=== PATIENT | male | born 1970 | race Caucasian/White ===

== ENCOUNTER 2016-11-09 16:01 | Emergency (ER) | payer MEDICAID ==
[~2016-11-09] VITALS: Wt 81.0 kg
[~2016-11-09 16:01] MED LIST: NAPR-260 PO; ULT50 PO
[2016-11-09] MEDS ORDERED: FLUORESCEIN STRIP BOTH EYES ONE (16:30)
[2016-11-09] MEDS ORDERED: TETRACAINE 0.5% 15 ML OPH BOTH EYES ONE (16:30)
[2016-11-09] MEDS ORDERED: OFLO5DRO7 BOTH EARS (16:48)
--- NOTE | 2016-11-09 17:07 | ERD ---
ER Documentation Chief Complaint Date/Time DATE: 11/09/16 TIME: 17:03 Chief Complaint bilateral eye redness and drainage. HPI Patient is a 46-year-old male who presents to the ED with bilateral eye redness and drainage. He states that he uses contacts and usually keeps him in for 1 week as they are overnight and long-term contacts. However he states that he had them in his eye for 1 day extra. He states that he removed the contact in his right eye but not his left. He states that he cannot remove the contact in his left eye as he does not have glasses and will not be able to see. He denies fever or chills. Denies blurry vision, dizziness or headaches. He denies abdominal pain, nausea, vomiting or diarrhea. He denies a sensation of a foreign body in his eyes. Denies pain or itchiness. ROS All systems reviewed and are negative except as per history of present illness. Medications Home Meds Active Scripts Naproxen* (Naprosyn*) 500 Mg Tablet, 500 MG PO BID Y for PAIN AND/OR INFLAMMATION, #30 TAB Prov:JOSE GALLOWAY PA-C 08/10/16 Tramadol HCl (Tramadol HCl) 50 Mg Tablet, 50 MG PO Q4 Y for PAIN, #20 TAB Prov:JOSE GALLOWAY PA-C 08/10/16 Allergies Allergies: Coded Allergies: No Known Allergy (Unverified , 11/09/16) PMhx/Soc Medical and Surgical Hx: pt denies Medical Hx, pt denies Surgical Hx History of Surgery: No Anesthesia Reaction: No Hx Neurological Disorder: No Hx Respiratory Disorders: No Hx Cardiac Disorders: No Hx Psychiatric Problems: No Hx Miscellaneous Medical Probl: No Hx Alcohol Use: No Hx Substance Use: No Hx Tobacco Use: No Smoking Status: Never smoker Physical Exam Vitals Vital Signs Date Time Temp Pulse Resp B/P Pulse Ox O2 Delivery O2 Flow Rate FiO2 11/09/16 16:04 98.5 100 20 139/85 98 Physical Exam GENERAL: Well-developed, well-nourished male. Appears in no acute distress. HEAD: Normocephalic, atraumatic. EYES: Pupils are equally reactive bilaterally. EOMs grossly intact. bilateral conjunctival erythema. no foreign bodies seen. contact is in left eye. ENT: Moist mucous membranes. No uvula deviation. No kissing tonsils. No exudates. NECK: Supple. No lymphadenopathy or thyromegaly. No meningismus. negative kernig. negative brudinski. LUNG: Clear to auscultation bilaterally. No rhonchi, wheezing, rales or coarse breath sounds. HEART: Regular rate and rhythm. No murmurs, rubs or gallops. ABDOMEN: No scars, ecchymosis or rashes noted. Soft, nontender, and nondistended. Positive bowel sounds in all four quadrants. No rebound tenderness , no guarding. (-) McBurneys point tenderness. No CVA tenderness. BACK: No midline tenderness. Extremities: Equal pulses bilaterally. No peripheral clubbing, cyanosis or edema. No unilateral leg swelling. NEUROLOGIC: Alert and oriented. Moving all four extremities. 5/5 strength in all extremities. Normal speech. Steady gait. SKIN: Normal color. Warm and dry. No rashes or lesions. Capillary refill < 2 seconds Results 24 hrs Current Medications Medications (Trade) Dose Ordered Sig/Aditya Route PRN Reason Start Time Stop Time Status Last Admin Dose Admin Tetracaine HCl (Tetracaine 0.5% Oph) 1 drop ONCE ONCE BOTH EYES 11/09/16 16:30 11/09/16 17:32 DC Fluorescein Sodium (Poane-K-Gklti) 1 strip ONCE ONCE BOTH EYES 11/09/16 16:30 11/09/16 17:32 DC Procedures/MDM ER COURSE: I kept the patient and/or family informed of laboratory and diagnostic imaging results throughout the emergency room course. PROCEDURES: Fluorescein, tetracaine. UV light. MEDICAL DECISION MAKING: This is a 46-year-old male who presents with bilateral eye redness. Vital signs were reviewed. Patient is afebrile. Patient is not hypoxic. Patient likely has irritation from contact use. His eye examination was normal. I did not see any Isamar sign, foreign body, abrasion or ulcers. No dendritic lesions seen. Patient refused examination of his left eye as he did not want to take his contact and did not want any tetracaine or fluorescein stain in that eye. Low suspicion for acute angle closure glaucoma, retinal detachment, arterial occlusion, hemorrhage, fracture, foreign body, ruptured globe, orbital cellulitis. DISCHARGE: At this time, patient is stable for discharge and outpatient management with no new complaints during the ER course. Patient was sent home with ofloxacin drops patient to follow-up with ophthalmology. Advised patient to wear glasses and not contacts for 2-3 weeks.. Patient will be discharged home with instructions to recheck for new or worsening symptoms such as fever, nausea, weakness, LOC and to follow up with primary care in the next 1-2 days. Patient was advised to return to the ER for any new or worsening symptoms. Plan was discussed and patient and/or family understands and agrees. Home instructions were given. Departure Diagnosis: Primary Impression: Eye problem Condition: Stable Patient Instructions: Corneal Injury, Contact Lens Additional Instructions: Call your primary care doctor TOMORROW for an appointment during the next 1-2 days.See the doctor sooner or return here if your condition worsens before your appointment time. CLAUS ORTIZ PA-C Nov 09, 2016 17:07 CLAUS ORTIZ PA-C Nov 09, 2016 17:07
== END 2016-11-09 17:16 | disposition home or self-care (01) ==
LOC: FTE 16:01
DX: H57.8 Other specified disorders of eye and adnexa (principal)
CPT/HCPCS: 99283

== ENCOUNTER 2017-08-01 20:06 | Emergency (ER) | payer MEDICAID ==
[~2017-08-01] VITALS: Ht 172.7 cm; Wt 86.5 kg
[~2017-08-01 20:06] MED LIST changes: +TRAM50TA2 PO; -ULT50 PO
[2017-08-01 20:33] VITALS: Ht 172.7 cm; Wt 86.5 kg
[2017-08-01] MEDS ORDERED: IBUP-1542 PO (22:31)
[2017-08-01] MEDS ORDERED: PENI500T PO (22:31)
--- NOTE | 2017-08-01 23:18 | ERD ---
ER Documentation Chief Complaint Date/Time DATE: 08/01/17 TIME: 23:15 Chief Complaint upper front tooth pain for 1 week HPI 47-year-old male patient with no significant past medical history presents to the ED with frontal teeth pain that started Saturday 6 days ago. Reports that the pain is sharp and rates it a 10 out of 10. States that the gums surrounding his frontal teeth are swollen. Denies any change in phonation. Denies any sore throat, nausea, vomiting, fever, chills, odynophagia, dysphagia , neck stiffness, neck pain. ROS All systems reviewed and are negative except as per history of present illness. Medications Home Meds Active Scripts Ibuprofen* (Motrin*) 600 Mg Tab, 600 MG PO Q6, #30 TAB take with food Prov:BRAXTON WAGNER PA-C 08/01/17 Penicillin V Potassium* (Penicillin V K*) 500 Mg Tab, 500 MG PO QID for 7 Days, TAB Prov:BRAXTON WAGNER PA-C 08/01/17 Naproxen* (Naprosyn*) 500 Mg Tablet, 500 MG PO BID Y for PAIN AND/OR INFLAMMATION, #30 TAB Prov:JOSE GALLOWAY PA-C 08/10/16 Tramadol HCl (Tramadol HCl) 50 Mg Tablet, 50 MG PO Q4 Y for PAIN, #20 TAB Prov:JOSE GALLOWAY PA-C 08/10/16 Allergies Allergies: Coded Allergies: No Known Allergy (Unverified , 11/09/16) PMhx/Soc Medical and Surgical Hx: pt denies Medical Hx, pt denies Surgical Hx History of Surgery: No Anesthesia Reaction: No Hx Neurological Disorder: No Hx Respiratory Disorders: No Hx Cardiac Disorders: No Hx Psychiatric Problems: No Hx Miscellaneous Medical Probl: No Hx Alcohol Use: No Hx Substance Use: No Hx Tobacco Use: No Smoking Status: Never smoker Physical Exam Vitals Vital Signs Date Time Temp Pulse Resp B/P Pulse Ox O2 Delivery O2 Flow Rate FiO2 08/01/17 20:33 98.8 111 20 154/95 98 Physical Exam Const: [id number], well-nourished. In no acute distress. Head: Atraumatic, normocephalic Eyes: Normal Conjunctiva without injection. No purulent discharge. PERRL. EOMI ENT: Normal external ear. Ear canal without erythema. Tympanic membrane pearly kim without effusion or bulging. Nasal canal clear with normal turbinates. Moist oropharynx without tonsillar exudates. Tenderness to palpation of the bilateral frontal teeth with surrounding erythema of the gums. No fluctuance or induration. No purulent discharge noted. Non-erythematous pharynx. Uvula midline. No drooling. No trismus. Neck: Full range of motion. No meningismus. No cervical lymphadenopathy. Resp: Clear to auscultation bilaterally. No wheezing, rhonchi, rales, or crackles. No accessory muscle use. No retractions. Cardio: Regular rate and rhythm. No murmurs, rubs or gallops. Abd: Soft, non tender, non distended. Normal bowel sounds. No palpable masses. No rebound tenderness. No guarding. Skin: No petechiae or rashes Back: No midline tenderness. No CVA tenderness. Ext: No cyanosis, or edema. Neur: Awake and alert. Psych: Normal Mood and Affect Procedures/MDM This is a 47-year-old male patient with no significant past medical history presents to the ED complaining of teeth pain that started 6 days ago as well as gum swelling. Patient is afebrile and nontoxic-appearing. Patient has normal vital signs. Patient has not followed up with a dentist. Patient will be given a prescription for penicillin VK on outpatient basis since there is noted to have some erythema and swelling of the gums as well as ibuprofen for early forming dental abscess. Patient was instructed to follow-up with a dentist tomorrow. Low suspicion for dental abscess that needs incision and drainage at this time. Patient's ENT symptoms have stabilized while in the department and are appropriate for outpatient work up. Exam and w/u not consistent w/ deep space infection of the face, throat, or mastoids. No evidence of impending airway compromise or meningitis. Discharge medications: Ibuprofen, Penicillin VK Follow up with primary care physician in 1-2 days. Instructed patient to return to the ED sooner for any worsening symptoms. Patient's questions were answered. Patient understood and agreed with discharge plan. Patient discharged stable. Departure Diagnosis: Primary Impression: Pain, dental Additional Impression: Gum inflammation Condition: Stable Patient Instructions: Dental Pain Referrals: [facility] YOU HAVE RECEIVED A MEDICAL SCREENING EXAM AND THE RESULTS INDICATE THAT YOU DO NOT HAVE A CONDITION THAT REQUIRES URGENT TREATMENT IN THE EMERGENCY DEPARTMENT. FURTHER EVALUATION AND TREATMENT OF YOUR CONDITION CAN WAIT UNTIL YOU ARE SEEN IN YOUR DOCTORS OFFICE WITHIN THE NEXT 1-2 DAYS. IT IS YOUR RESPONSIBILITY TO MAKE AN APPOINTMENT FOR FOLOW-UP CARE. IF YOU HAVE A PRIMARY DOCTOR --you should call your primary doctor and schedule an appointment IF YOU DO NOT HAVE A PRIMARY DOCTOR YOU CAN CALL OUR PHYSICIAN REFERRAL HOTLINE AT IF YOU CAN NOT AFFORD TO SEE A PHYSICIAN YOU CAN CHOSE FROM THE FOLLOWING [facility] [address] [facility] [address] [facility] [address] [facility] [address] [facility] [facility] [address] [facility] [facility] [address] [facility] [facility] YOU HAVE RECEIVED A MEDICAL SCREENING EXAM AND THE RESULTS INDICATE THAT YOU DO NOT HAVE A CONDITION THAT REQUIRES URGENT TREATMENT IN THE EMERGENCY DEPARTMENT. FURTHER EVALUATION AND TREATMENT OF YOUR CONDITION CAN WAIT UNTIL YOU ARE SEEN IN YOUR DOCTORS OFFICE WITHIN THE NEXT 1-2 DAYS. IT IS YOUR RESPONSIBILITY TO MAKE AN APPOINTMENT FOR FOLOW-UP CARE. IF YOU HAVE A PRIMARY DOCTOR --you should call your primary doctor and schedule and appointment IF YOU DO NOT HAVE A PRIMARY DOCTOR YOU CAN CALL OUR PHYSICIAN REFERRAL HOTLINE AT . IF YOU CAN NOT AFFORD TO SEE A PHYSICIAN YOU CAN CHOSE FROM THE FOLLOWING [facility] [address] [place] [address] [facility] [address] [place] [address] [facility] [address] [place] [address] [facility] ([facility] walk in clinic) Additional Instructions: FOLLOW UP WITH A DENTIST TOMORROW.Return to this facility if you are not improving as expected. BRAXTON WAGNER PA-C Aug 01, 2017 23:18
== END 2017-08-01 22:50 | disposition home or self-care (01) ==
LOC: FTE 20:06
DX: K08.89 Other specified disorders of teeth and supporting structures (principal); K05.10 Chronic gingivitis, plaque induced
CPT/HCPCS: 99283